=== PATIENT | female | born 1935 | race Caucasian/White ===

== ENCOUNTER → 2020-03-26 | Outpatient (CLI) | payer OTHER | LOC: SJCVCIMAG 12:45 | DX: I87.2 Venous insufficiency (chronic) (peripheral) (principal); I83.899 Varicose veins of unspecified lower extremity with other complications; I10 Essential (primary) hypertension; M79.89 Other specified soft tissue disorders ==

== ENCOUNTER → 2020-04-05 | Outpatient (CLI) | payer OTHER ==
[~2020-04-05] VITALS: Ht 152.4 cm; Wt 78.0 kg
[~2020-04-05] MED LIST: COZAAR 25 MG TA25 M1 PO; FUROSEMIDE 20 M20 MG PO; INDERAL LA120 M1 PO; LEVO-T100 MCG PO; LOSARTAN-HCTZ1 EAC3 PO; PROBIOTIC1 EAC7 PO
[2020-04-05 09:03] VITALS: BP 110/59
--- NOTE | 2020-04-05 12:07 | NUR ---
1145-DC INSTRUCTIONS REVIEWED WITH PT, ALL QUESTIONS ANSWERED. PT WITH NO C/O PAIN, A LITTLE DIZZY UPON SITTING UP BUT RESOLVED. PT UP TO THE BATHROOM AND VOIDED WITHOUT DIFFICULTY. PTS FRIEND NOTIFIED THAT PT WITH READY TO BE PICKED UP.
--- NOTE | 2020-04-05 12:12 | NUR ---
PT C/O HEADACHE PRIOR TO DC. ACETAMINOPHEN 1 GM PO GIVEN PRIOR TO DC. ALSO GIVEN CRACKERS. PT'S RIDE HERE. WHEELCHAIR TO DOOR PER VOLUNTEER
== END | disposition home or self-care (01) ==
LOC: CATH 06:35
DX: I87.322 Chronic venous hypertension (idiopathic) with inflammation of left lower extremity (principal); M79.605 Pain in left leg; R22.42 Localized swelling, mass and lump, left lower limb; I10 Essential (primary) hypertension; Z98.890 Other specified postprocedural states; Z90.710 Acquired absence of both cervix and uterus; Z79.899 Other long term (current) drug therapy